=== PATIENT | female | born 1950 | race Caucasian/White ===

== ENCOUNTER 2017-09-13 12:27 | Inpatient (IN) | payer MEDICARE ==
--- NOTE | 2017-09-13 13:38 | ER Document Report ---
HPI - HPI Patient complains to provider of: Knee injury Onset: Other - 2 days ago Onset/Duration: Persistent Quality of pain: Achy Pain Level: 3 Context: Patient's daughter reports that patient fell 2 days ago and remained lying on the floor until the following day at 2 PM whenever she found her and called EMS. Patient states that she remained in a chair from Tuesday until today and came for evaluation of her continued bilateral knee pain. Patient does report a history of congenital hip problems in which she has had numerous hip replacements in the past. Patient denies any head injury or loss of consciousness. Patient denies any chest pain or difficulty breathing. Associated Symptoms: Other - Bilateral knee pain. denies: Fever, Headache Exacerbated by: Movement Relieved by: Denies Similar symptoms previously: No Recently seen / treated by doctor: No - ROS ROS below otherwise negative: Yes Systems Reviewed and Negative: Yes All other systems reviewed and negative - CONSTITUTIONAL Constitutional: DENIES: Fever, Chills - NEURO Neurology: DENIES: Headache, Weakness - GASTROINTESTINAL Gastrointestinal: DENIES: Nausea, Patient vomiting - MUSCULOSKELETAL Musculoskeletal: REPORTS: Extremity pain - R leg pain. DENIES: Back Pain, Neck Pain - DERM Skin Color: Ecchymosis Skin Problems: None Past Medical History - General Information source: Patient, Relative - Social History Smoking Status: Former Smoker Chew tobacco use (# tins/day): No Drug Abuse: None Occupation: None Lives with: Alone Family History: Reviewed & Not Pertinent Patient has suicidal ideation: No Patient has homicidal ideation: No Renal/ Medical History: Denies: Hx Peritoneal Dialysis Musculoskeltal Medical History: Reports Hx Arthritis Past Surgical History: Reports: Hx Orthopedic Surgery Vertical Provider Document - CONSTITUTIONAL Agree With Documented VS: Yes Exam Limitations: No Limitations General Appearance: WD/WN, No Apparent Distress - INFECTION CONTROL TRAVEL OUTSIDE OF THE [place] IN LAST 30 DAYS: No - HEENT HEENT: Atraumatic, Normocephalic - NECK Neck: Normal Inspection - RESPIRATORY Respiratory: Breath Sounds Normal, No Respiratory Distress - CARDIOVASCULAR Cardiovascular: Regular Rate, Regular Rhythm Pulses: Normal: Dorsalis pedis - GI/ABDOMEN Gastrointestinal: Abdomen Soft - BACK Back: Normal Inspection Notes: No spinal midline tenderness, step-off or deformity - MUSCULOSKELETAL/EXTREMETIES Musculoskeletal/Extremeties: MAEW, Tender - Patient with bilateral knee joint tenderness, Edema, Eccymosis - Right lower extremity anterior aspect of right lower extremity Notes: Leg length discrepancy, marked edema and ecchymosis to anterior aspect of right lower extremity involving the first and second thirds of the lower leg - NEURO Level of Consciousness: Awake, Alert, Appropriate Motor/Sensory: No Motor Deficit - DERM Integumentary: Warm, Dry, No Rash Course - Re-evaluation Re-evalutation: 09/13/17 15:15 Call placed perforator operator oil well for consultation with orthopedics, message left on Dr. Benavides's line. Patient advised that is recommended to have her fractures immobilized for stability. 09/13/17 16:09 Dr. Benavides is currently in a surgical case. Message left with circulating RN to relay that he has a consultation in the ER pending. Patient is only agreeable to have her left leg splinted at this time. Patient insistent that she will be going home because she lives alone. 09/13/17 16:54 Still awaiting consultation with orthopedic surgeon. Patient requesting that her case and plan of care be related to her daughter who was on the phone. Patient gave verbal consent to speak with her daughter about her case. Patient continues to decline any immobilization at this time. 09/13/17 17:[address] Benavides who advises putting knee immobilizers on bilateral lower extremities, obtaining a left femur x-ray as well as an AP view of the left knee. States he will be by later this evening to see patient. Recommends having hospitalist admit patient. Consulted with Dr. Deal who does agree to accept patient for admission as long as the orthopedic surgeon feels that he can manage patient here. - Vital Signs Vital signs: Temp Pulse Resp BP Pulse Ox 98.4 F 91 16 120/70 97 09/13/17 12:28 09/13/17 12:28 09/13/17 12:28 09/13/17 12:28 09/13/17 12:28 - Laboratory Result Diagrams: 09/13/17 18:18 09/13/17 18:18 - Diagnostic Test Radiology reviewed: Image reviewed, Reports reviewed Discharge - Discharge Clinical Impression: Bilateral tibial fractures Qualifiers: Encounter type: initial encounter Fracture type: closed Qualified Code(s): S82.201A - Unspecified fracture of shaft of right tibia, initial encounter for closed fracture Fracture of left proximal fibula Qualifiers: Encounter type: initial encounter Fracture type: closed Fracture morphology: unspecified fracture morphology Qualified Code(s): S82.832A - Other fracture of upper and lower end of left fibula, initial encounter for closed fracture Fall Qualifiers: Encounter type: initial encounter Qualified Code(s): W19.XXXA - Unspecified fall, initial encounter Condition: Stable Disposition: ADMITTED INPATIENT Admitting Provider: Hospitalist Unit Admitted: Medical Floor
--- NOTE | 2017-09-13 14:55 | RADIOLOGY REPORT (SQ) ---
EXAM DESCRIPTION: KNEE LEFT 2 VIEWS COMPLETED DATE/TIME: 09/13/2017 2:32 pm REASON FOR STUDY: fall COMPARISON: None. NUMBER OF VIEWS: Four views. TECHNIQUE: AP, lateral, and oblique radiographic images acquired of the left knee. LIMITATIONS: None. FINDINGS: MINERALIZATION: Osteopenia. BONES: Minimally displaced fracture proximal tibia. Fibular head fracture. JOINT: No effusion. SOFT TISSUES: No soft tissue swelling. No radio-opaque foreign body. OTHER: Limited visualization of an intramedullary femoral courtney with associated loosening that protrude s through the distal femur anteriorly. This is probably old based on radiographic appearance. IMPRESSION: Acute fractures of the proximal tibia and fibular head. See above discussion concerning intramedullary courtney. TECHNICAL DOCUMENTATION: JOB ID: [id number] [employer]- All Rights Reserved Reading location - IP/workstation name: [email or web address]
--- NOTE | 2017-09-13 15:00 | RADIOLOGY REPORT (SQ) ---
EXAM DESCRIPTION: KNEE RIGHT 4 VIEWS COMPLETED DATE/TIME: 09/13/2017 2:32 pm REASON FOR STUDY: fall COMPARISON: None. NUMBER OF VIEWS: Four views. TECHNIQUE: AP, lateral, and both oblique radiographic images acquired of the right knee. LIMITATIONS: None. FINDINGS: MINERALIZATION: Normal. BONES: Comminuted fracture the proximal tibia with fracture line extending into the tibial plateau. Fibula intact JOINT: No effusion. SOFT TISSUES: Soft tissue swelling medial aspect of the knee adjacent to the fracture. OTHER: No other significant finding. IMPRESSION: Acute comminuted fracture the proximal tibia with fracture line extending into the tibi al plateau. TECHNICAL DOCUMENTATION: JOB ID: [id number] [employer]- All Rights Reserved Reading location - IP/workstation name: [email or web address]
--- NOTE | 2017-09-13 15:01 | RADIOLOGY REPORT (SQ) ---
EXAM DESCRIPTION: TIBIA FIBULA RIGHT COMPLETED DATE/TIME: 09/13/2017 2:32 pm REASON FOR STUDY: fall COMPARISON: None. NUMBER OF VIEWS: Two views. TECHNIQUE: Two radiographic images acquired of the right tibia and fibula to include the knee and an kle in at least one projection. LIMITATIONS: None. FINDINGS: MINERALIZATION: Normal. BONES: Fracture the proximal tibia is previously described. No fractures of the mid and distal shaft s of the tibia and fibula. SOFT TISSUES: No obvious swelling or foreign body. OTHER: No other significant finding. IMPRESSION: Fracture of the proximal tibia as reported on the knee films. No fracture of the mid an d distal shafts of the tibia and fibula TECHNICAL DOCUMENTATION: JOB ID: [id number] [employer]- All Rights Reserved Reading location - IP/workstation name: [email or web address]
[2017-09-13] MEDS ORDERED: ONDANSETRON HCL INJ/PF 4 MG/2 ML SDV IV PRN (18:02)
[2017-09-13] MEDS ORDERED: IPRATROPIUM/ALBUTEROL 0.5-2.5 MG/3 ML AMPUL NEB PRN (18:02)
[2017-09-13 18:38] LABS: ABSOLUTE BASOPHILS # (AUTO) 0.1 10^3/uL (0.0-0.2); ABSOLUTE EOSINOPHILS # (AUTO) 0.1 10^3/uL (0.0-0.6); ABSOLUTE LYMPHOCYTES (AUTO) 1.2 10^3/uL (0.5-4.7); BASOPHILS % (AUTO) 0.6 % (0-2); EOSINOPHILS % (AUTO) 0.8 % (0-6); HEMATOCRIT 37.4 % (36.0-47.0); HEMOGLOBIN 12.5 g/dL (12.0-15.5); LYMPHOCYTES % (AUTO) 11.6 % (13-45); MEAN CORPUSCULAR HGB CONC 33.4 g/dL (32.0-36.0); MEAN CORPUSCULAR VOLUME 90 fl (80-97); MONOCYTES % (AUTO) 9.3 % (3-13); PLATELET COUNT 360 10^3/uL (150-450); RED BLOOD COUNT 4.17 10^6/uL (3.72-5.28); RED CELL DISTRIBUTION WIDTH 14.7 % (11.5-14.0); SEGMENTED NEUTROPHILS % (AUTO) 77.7 % (42-78); TOTAL CELLS COUNTED % (AUTO) 100 %; WHITE BLOOD COUNT 10.3 10^3/uL (4.0-10.5)
[2017-09-13 18:56] LABS: ALBUMIN 3.8 g/dL (3.5-5.0); ANION GAP 15 (5-19); BLOOD UREA NITROGEN 31 mg/dL (7-20); CARBON DIOXIDE 25 mmol/L (22-30); CHLORIDE 102 mmol/L (98-107); CREATINE KINASE 58 U/L (30-135); GLUCOSE 96 mg/dL (75-110); PHOSPHORUS 5.7 mg/dL (2.5-4.5); POTASSIUM 4.4 mmol/L (3.6-5.0); SODIUM 142.3 mmol/L (137-145)
--- NOTE | 2017-09-13 19:16 | PDOC H&P ---
History of Present Illness Admission Date/PCP: 09/13/17 17:29 Patient complains of: bilateral leg pain History of Present Illness: LOREN DIEHL is a 66 year old female with past history of congenital hip dysplasia, with hx of left hip replacement x3, and right hip replacement x1. Patient denies taking medicine on a regular basis for any condition other than regular strength Ibuprofen occassionally for lower extremity pain. States that she was walking in her rented home and tripped on protective plastic that was on the floor. Due to her congenital hip condition, she uses bilateral canes in her ambulation. Patient does not have a PCP in the area due to moving from [place] in the last 6 months. She moved here to be closer to her daughter who lives in the area. Orthopedics is currently seeing her and so far recommend bilateral knee immobilizers and no surgery. Patient will be admitted under observation status overnight, for further treatment of her pain, and evaluation by PT. Patient lives alone. Currently describes no significant pain, but if she moves her legs, describes severe pain. Past Medical History Musculoskeltal Medical History: Reports: Arthritis, Other - congenital hip dysplasia Past Surgical History Past Surgical History: left hip replacement x3, right hip replacement x1 Past Surgical History: Reports: Hip Replacement, Orthopedic Surgery - L HIP REPLACEMENT Social History Information Source: Patient Lives with: Alone Smoking Status: Former Smoker Cigarettes Packs Per Day: 0 - smoked for 10 years in her youth Frequency of Alcohol Use: Heavy Amount of Alcoholic Beverages Per Day: 3 glasses of wine per day Hx Recreational Drug Use: No - Advance Directive Resuscitation Status: Full Code Family History Family History: mother had DM, passed at age 89 father had stomach ulcers and passed at age 37. Parental Family History Reviewed: Yes Children Family History Reviewed: No Sibling(s) Family History Reviewed.: No Medication/Allergy Home Medications: No Home Medications 09/13/17 Allergies/Adverse Reactions: Penicillins Allergy (Verified 09/13/17 12:31) Review of Systems Constitutional: ABSENT: fatigue, fever(s), headache(s), weakness Eyes: ABSENT: visual disturbances Ears: ABSENT: hearing changes Nose, Mouth, and Throat: ABSENT: mouth pain, sore throat Cardiovascular: ABSENT: chest pain, edema Respiratory: ABSENT: cough, dyspnea Gastrointestinal: ABSENT: diarrhea, vomiting Genitourinary: ABSENT: dysuria, hematuria Musculoskeletal: PRESENT: other - tender to palpation below both knees bilaterally Integumentary: ABSENT: diaphoresis, lesions Neurological: ABSENT: focal weakness, lack of coordination, memory loss Psychiatric: ABSENT: anxiety, hallucinations Endocrine: ABSENT: flushing, heat intolerance Hematologic/Lymphatic: ABSENT: easy bruising, lymphadenopathy Physical Exam Vital Signs: Temp Pulse Resp BP Pulse Ox 98.0 F 103 H 16 124/73 98 09/13/17 18:31 09/13/17 18:31 09/13/17 18:31 09/13/17 18:31 09/13/17 18:31 General appearance: PRESENT: no acute distress, cooperative Head exam: PRESENT: atraumatic, normocephalic Eye exam: PRESENT: EOMI, PERRLA Ear exam: PRESENT: normal external ear exam. ABSENT: drainage Mouth exam: PRESENT: moist, neck supple Throat exam: ABSENT: tonsillar erythema, tonsillar exudate Neck exam: PRESENT: JVD. ABSENT: full ROM Respiratory exam: ABSENT: accessory muscle use, rales, rhonchi, wheezes Cardiovascular exam: PRESENT: RRR, +S1, +S2 Pulses: PRESENT: normal radial pulses, normal dorsalis pedis pul GI/Abdominal exam: PRESENT: normal bowel sounds, soft. ABSENT: rigid Extremities exam: PRESENT: tenderness - tenderness below knees bilaterally Musculoskeletal exam: PRESENT: tenderness. ABSENT: ambulatory Neurological exam: PRESENT: alert, oriented to person, oriented to place, oriented to time, oriented to situation Psychiatric exam: ABSENT: anxious, depressed, manic Focused psych exam: ABSENT: internal stimuli, paranoid Skin exam: PRESENT: normal color. ABSENT: mottled Results Laboratory Results: 09/13/17 18:18 09/13/17 18:18 WBC 10.3 RBC 4.17 Hgb 12.5 Hct 37.4 MCV 90 MCH 30.0 MCHC 33.4 RDW 14.7 H Plt Count 360 Seg Neutrophils % 77.7 Lymphocytes % 11.6 L Monocytes % 9.3 Eosinophils % 0.8 Basophils % 0.6 Absolute Neutrophils 8.0 Absolute Lymphocytes 1.2 Absolute Monocytes 1.0 Absolute Eosinophils 0.1 Absolute Basophils 0.1 Impressions: Knee X-Ray 09/13/17 13:36 IMPRESSION: Acute comminuted fracture the proximal tibia with fracture line extending into the tibial plateau. Tibia/Fibula X-Ray 09/13/17 13:36 IMPRESSION: Fracture of the proximal tibia as reported on the knee films. No fracture of the mid and distal shafts of the tibia and fibula Assessment & Plan - Diagnosis (1) Bilateral tibial fractures Qualifiers: Encounter type: initial encounter Fracture type: closed Qualified Code(s) : S82.201A - Unspecified fracture of shaft of right tibia, initial encounter for closed fracture; S82.202A - Unspecified fracture of shaft of left tibia, initial encounter for closed fracture; S82.202A - Unspecified fracture of shaft of left tibia, initial encounter for closed fracture Is this a current diagnosis for this admission?: Yes Plan: Orthopedics evaluated patient in ED, recommending bilateral knee immobilizers. will bring patient in for observation, pain control, and PT assessment. May need SNF/rehab at discharge, Discharge planning consulted. Start Calcium/Vitamin D (2) Fall Qualifiers: Encounter type: initial encounter Qualified Code(s): W19.XXXA - Unspecified fall, initial encounter Is this a current diagnosis for this admission?: Yes Plan: Walks with bilateral canes at home. PT to evaluate her mobility. She will likely not be able to stand with her bilateral knee immobilizers. (3) Inadequate pain control Is this a current diagnosis for this admission?: Yes Plan: prn Tylenol, prn Oxycodone and prn IV Dilaudid. (4) Congenital hip dysplasia Is this a current diagnosis for this admission?: Yes Plan: Chronic mobility dissorder. PT consulted.
--- NOTE | 2017-09-13 19:20 | RADIOLOGY REPORT (SQ) ---
EXAM DESCRIPTION: FEMUR LEFT COMPLETED DATE/TIME: 09/13/2017 7:06 pm REASON FOR STUDY: fall COMPARISON: None. NUMBER OF VIEWS: Two views. TECHNIQUE: Two radiographic images acquired of the left femur to include hip and knee in at least on e projection. LIMITATIONS: None. FINDINGS: MINERALIZATION: Normal. BONES: There is a left hip arthroplasty with a long medullary courtney that extends almost to the knee. O n the lateral view the courtney has extended anterior to the femur. There appear to be fractures of the p roximal tibia and fibula as suggested on the lateral view at the knee. . SOFT TISSUES: No obvious swelling or foreign body. OTHER: No other significant finding. IMPRESSION: 1. Fractures of the proximal tibia and fibula. 2. Old surgical changes as described. TECHNICAL DOCUMENTATION: JOB ID: [id number] [employer]- All Rights Reserved Reading location - IP/workstation name: [email or web address]
--- NOTE | 2017-09-13 19:20 | PDOC CONSULTATION ---
History of Present Illness Admission Date/PCP: 09/13/17 17:29 Patient complains of: b/l knee pain History of Present Illness: LOREN DIEHL is a 66 year old female who presents to emergency room with pain in her bilateral knees. She states on Tuesday she sustained a fall onto her knees and her own apartment and was discovered by her daughter the next morning with the inability to weight-bear or ambulate. She admits to being somewhat stubborn and felt like Advil and Tylenol would improve her discomfort which is the reason she initially did not go to the emergency room but since her pain did not improve she decided to come to the emergency room. Patient is a community ambulator but requires bilateral cane secondary to a long-standing history of congenital dysplasia in her hips which required multiple surgeries including 5 surgeries on the left and 2 surgeries on the right and she has a chronic limb length discrepancy. Past Medical History Cardiac Medical History: Reports: Hypertension Musculoskeltal Medical History: Reports: Arthritis, Other - congenital hip dysplasia Past Surgical History Past Surgical History: Reports: Hip Replacement, Orthopedic Surgery - L HIP REPLACEMENT Social History Lives with: Alone Smoking Status: Former Smoker Cigarettes Packs Per Day: 0 - smoked for 10 years in her youth Frequency of Alcohol Use: Heavy Hx Recreational Drug Use: No - Advance Directive Resuscitation Status: Full Code Family History Parental Family History Reviewed: No Children Family History Reviewed: No Sibling(s) Family History Reviewed.: No Medication/Allergy Home Medications: No Home Medications 09/13/17 Allergies/Adverse Reactions: Penicillins Allergy (Verified 09/13/17 12:31) Review of Systems Constitutional: ABSENT: chills, fever(s), headache(s), weight gain, weight loss Eyes: ABSENT: visual disturbances Ears: ABSENT: hearing changes Cardiovascular: ABSENT: chest pain, dyspnea on exertion, edema, orthropnea, palpitations Respiratory: ABSENT: cough, hemoptysis Gastrointestinal: ABSENT: abdominal pain, constipation, diarrhea, hematemesis, hematochezia, nausea, vomiting Genitourinary: ABSENT: dysuria, hematuria Musculoskeletal: PRESENT: as per HPI Integumentary: ABSENT: rash, wounds Neurological: ABSENT: abnormal gait, abnormal speech, confusion, dizziness, focal weakness, syncope Psychiatric: ABSENT: anxiety, depression, homidical ideation, suicidal ideation Endocrine: ABSENT: cold intolerance, heat intolerance, menstrual abnormalities, polydipsia, polyuria Hematologic/Lymphatic: ABSENT: easy bleeding, easy bruising, lymphadenopathy Physical Exam Vital Signs: Temp Pulse Resp BP Pulse Ox 98.0 F 103 H 16 124/73 98 09/13/17 18:31 09/13/17 18:31 09/13/17 18:31 09/13/17 18:31 09/13/17 18:31 General appearance: PRESENT: no acute distress, well-developed, well-nourished Head exam: PRESENT: atraumatic, normocephalic Eye exam: PRESENT: conjunctiva pink, EOMI, PERRLA. ABSENT: scleral icterus Ear exam: PRESENT: normal external ear exam Mouth exam: PRESENT: moist, tongue midline Neck exam: PRESENT: full ROM. ABSENT: carotid bruit, JVD, lymphadenopathy, thyromegaly Cardiovascular exam: PRESENT: RRR. ABSENT: diastolic murmur, rubs, systolic murmur Pulses: PRESENT: normal dorsalis pedis pul, +2 pedal pulses bilateral Vascular exam: PRESENT: normal capillary refill GI/Abdominal exam: PRESENT: normal bowel sounds, soft. ABSENT: distended, guarding, mass, organolmegaly, rebound, tenderness Rectal exam: PRESENT: deferred Musculoskeletal exam: PRESENT: other - Right lower extremity: Mild ecchymosis along the proximal tibia with tenderness to palpation. Limited range of motion secondary to pain. No calf tenderness. Intact plantar flexion/dorsiflexion no sensory deficits. Postsurgical changes noted along the hip region. Left lower extremity: Tenderness palpation of the proximal tibia/fibula with mild swelling and ecchymosis limited range of motion secondary to pain. No pain along the distal femur. Postsurgical changes noted along the hip patient has greater than 6 cm limb length inequality. No calf tenderness negative Homans. Neurological exam: PRESENT: alert, awake, oriented to person, oriented to place , oriented to time, oriented to situation, CN II-XII grossly intact. ABSENT: motor sensory deficit Psychiatric exam: PRESENT: appropriate affect, normal mood. ABSENT: homicidal ideation, suicidal ideation Skin exam: PRESENT: dry, intact, warm. ABSENT: cyanosis, rash Results Laboratory Results: 09/13/17 18:18 09/13/17 18:18 09/13/17 09/13/17 18:18 18:18 WBC 10.3 RBC 4.17 Hgb 12.5 Hct 37.4 MCV 90 MCH 30.0 MCHC 33.4 RDW 14.7 H Plt Count 360 Seg Neutrophils % 77.7 Lymphocytes % 11.6 L Monocytes % 9.3 Eosinophils % 0.8 Basophils % 0.6 Absolute Neutrophils 8.0 Absolute Lymphocytes 1.2 Absolute Monocytes 1.0 Absolute Eosinophils 0.1 Absolute Basophils 0.1 Sodium 142.3 Potassium 4.4 Chloride 102 Carbon Dioxide 25 Anion Gap 15 BUN 31 H Creatinine 2.23 H Est GFR ( Amer) 27 L Est GFR (Non-Af Amer) 22 L Glucose 96 Calcium 9.0 Phosphorus 5.7 H Magnesium 1.9 Albumin 3.8 09/13/17 18:18 Creatine Kinase 58 Impressions: Knee X-Ray 09/13/17 13:36 IMPRESSION: Acute comminuted fracture the proximal tibia with fracture line extending into the tibial plateau. Tibia/Fibula X-Ray 09/13/17 13:36 IMPRESSION: Fracture of the proximal tibia as reported on the knee films. No fracture of the mid and distal shafts of the tibia and fibula Status: Image reviewed by me - I have reviewed patient's radiographs which demonstrate nondisplaced proximal tibia fracture with associated fibula fracture. Radiographs of the left knee demonstrate likely proximal tibia fracture with associated fibula fracture along with post surgical changes along the distal femur likely chronic in nature however limited evaluation. Assessment & Plan - Diagnosis (1) Bilateral tibial fractures Qualifiers: Encounter type: initial encounter Fracture type: closed Qualified Code(s) : S82.201A - Unspecified fracture of shaft of right tibia, initial encounter for closed fracture; S82.202A - Unspecified fracture of shaft of left tibia, initial encounter for closed fracture; S82.202A - Unspecified fracture of shaft of left tibia, initial encounter for closed fracture Is this a current diagnosis for this admission?: Yes Plan: Currently patient's radiographs demonstrate acceptable alignment for conservative treatment of patient's bilateral proximal tibia fractures. Given this alignment we will treat the patient conservatively but she will require rehabilitation and maintaining nonweightbearing for 6 weeks. I discussed the case with the patient's daughter feels as though she may require shelter facility. Given the patient's age, fractures and difficulty with ambulation secondary to her congenital dysplasia I do feel shelter facility placement may be required or 24 7 home nursing. Today patient was placed in bilateral knee immobilizers. We will obtain repeat radiographs of the left femur and left knee to confirm nonoperative treatment appropriate. Will follow-up the patient once radiographs are complete patient will follow up with me on an outpatient basis.
--- NOTE | 2017-09-13 19:22 | RADIOLOGY REPORT (SQ) ---
EXAM DESCRIPTION: KNEE LEFT 2 VIEWS COMPLETED DATE/TIME: 09/13/2017 7:06 pm REASON FOR STUDY: fall COMPARISON: None. NUMBER OF VIEWS: Two views. TECHNIQUE: AP and lateral radiographic images acquired of the left knee. LIMITATIONS: None. FINDINGS: MINERALIZATION: Osteopenia. BONES: Fractures of the proximal tibia and fibula. There is a fracture component of the tibia that e xtends to the lateral tibial plateau. JOINT: No effusion. SOFT TISSUES: No soft tissue swelling. No radio-opaque foreign body. OTHER: No other significant finding. IMPRESSION: Tibial and fibular fractures. TECHNICAL DOCUMENTATION: JOB ID: [id number] [employer]- All Rights Reserved Reading location - IP/workstation name: [email or web address]
--- NOTE | 2017-09-13 19:31 | RADIOLOGY REPORT (SQ) ---
EXAM DESCRIPTION: CHEST SINGLE VIEW COMPLETED DATE/TIME: 09/13/2017 7:06 pm REASON FOR STUDY: fall COMPARISON: None. EXAM PARAMETERS: NUMBER OF VIEWS: One view. TECHNIQUE: Single frontal radiographic view of the chest acquired. RADIATION DOSE: NA LIMITATIONS: None. FINDINGS: LUNGS AND PLEURA: No opacities, masses or pneumothorax. No pleural effusion. MEDIASTINUM AND HILAR STRUCTURES: No masses. Contour normal. HEART AND VASCULAR STRUCTURES: Heart normal in size. Normal vasculature. BONES: No acute findings. HARDWARE: None in the chest. OTHER: No other significant finding. IMPRESSION: NO ACUTE RADIOGRAPHIC FINDING IN THE CHEST. TECHNICAL DOCUMENTATION: JOB ID: [id number] [employer]- All Rights Reserved Reading location - IP/workstation name: [email or web address]
[2017-09-13] MEDS: OXYCODONE-ACETAMINOPHEN 5-325 MG TABLET PO PRN (20:06)
--- NOTE | 2017-09-13 22:47 | EKG REPORT ---
SEVERITY:- NORMAL ECG - SINUS RHYTHM : Confirmed by: Marlon Fonseca 13-Sep-2017 22:46:17
[2017-09-14] MEDS ORDERED: HYDRALAZINE HCL INJ/PF 20 MG/1 ML SDV IV PRN (01:31)
[2017-09-14] MEDS: OXYCODONE-ACETAMINOPHEN 5-325 MG TABLET PO PRN ×2 (06:31→22:00)
[2017-09-14 08:00] LABS: ABSOLUTE BASOPHILS # (AUTO) 0.1 10^3/uL (0.0-0.2); ABSOLUTE EOSINOPHILS # (AUTO) 0.3 10^3/uL (0.0-0.6); ABSOLUTE LYMPHOCYTES (AUTO) 1.2 10^3/uL (0.5-4.7); ABSOLUTE MONOCYTES (AUTO) 0.9 10^3/uL (0.1-1.4); ABSOLUTE NEUT (AUTO) 7.1 10^3/uL (1.7-8.2); BASOPHILS % (AUTO) 0.8 % (0-2); EOSINOPHILS % (AUTO) 3.2 % (0-6); HEMATOCRIT 34.7 % (36.0-47.0); HEMOGLOBIN 11.6 g/dL (12.0-15.5); LYMPHOCYTES % (AUTO) 12.2 % (13-45); MEAN CORPUSCULAR HGB CONC 33.3 g/dL (32.0-36.0); MEAN CORPUSCULAR VOLUME 90 fl (80-97); MONOCYTES % (AUTO) 9.6 % (3-13); PLATELET COUNT 359 10^3/uL (150-450); RED BLOOD COUNT 3.85 10^6/uL (3.72-5.28); RED CELL DISTRIBUTION WIDTH 14.7 % (11.5-14.0); SEGMENTED NEUTROPHILS % (AUTO) 74.2 % (42-78); TOTAL CELLS COUNTED % (AUTO) 100 %; WHITE BLOOD COUNT 9.5 10^3/uL (4.0-10.5)
[2017-09-14 08:16] LABS: ANION GAP 17 (5-19); BLOOD UREA NITROGEN 38 mg/dL (7-20); CARBON DIOXIDE 24 mmol/L (22-30); CHLORIDE 101 mmol/L (98-107); GLUCOSE 93 mg/dL (75-110); POTASSIUM 4.3 mmol/L (3.6-5.0); SODIUM 141.5 mmol/L (137-145)
[2017-09-14] MEDS: DOCUSATE SODIUM 100 MG CAPSULE PO SCH (11:25)
[2017-09-14] MEDS: CALCIUM CARBONATE 250 MG/VITAMIN D3 125 UNIT TABLET PO SCH ×2 (11:25→21:05)
[2017-09-14] MEDS: ACETAMINOPHEN 325 MG TABLET PO PRN (13:14)
--- NOTE | 2017-09-14 21:18 | PDOC PROGRESS REPORT ---
Subjective Progress Note for:: 09/14/17 Subjective:: Complains of pain bilateral lower extremities. Does not like strong pain medicine, so only using Tylenol during the day. She however plans to use Percocet at night so she can sleep. Denies fever or chills, no chest pain or shortness of breath or palpitations. Reason For Visit: BILATERAL FRACTURE IN LOWER EXTREMITIES Physical Exam Vital Signs: Temp Pulse Resp BP Pulse Ox 98.2 F 90 12 124/63 99 09/14/17 16:37 09/14/17 16:37 09/14/17 16:37 09/14/17 16:37 09/14/17 16:37 Intake & Output 09/13/17 09/14/17 09/15/17 06:59 06:59 06:59 Intake Total 1468 Output Total 400 400 Balance -400 1068 Weight 65 kg GEN: NAD, well-developed, well-nourished CV: RRR, NL S1S2 LUNGS: CTA bilaterally ABDOMEN Soft, NT, +BS EXTERMITIES: No e/c/c Musculoskeletal:Right lower extremity with mild ecchymosis along the proximal tibia with tenderness to palpation. Left lower extremity with tenderness palpation of the proximal tibia/fibula with mild swelling and ecchymosis limited range of motion secondary to pain. NEURO: Alert, oriented 3, no acute weakness Results Laboratory Results: 09/14/17 07:00 09/14/17 07:00 09/14/17 09/14/17 07:00 07:00 WBC 9.5 RBC 3.85 Hgb 11.6 L Hct 34.7 L MCV 90 MCH 30.0 MCHC 33.3 RDW 14.7 H Plt Count 359 Seg Neutrophils % 74.2 Lymphocytes % 12.2 L Monocytes % 9.6 Eosinophils % 3.2 Basophils % 0.8 Absolute Neutrophils 7.1 Absolute Lymphocytes 1.2 Absolute Monocytes 0.9 Absolute Eosinophils 0.3 Absolute Basophils 0.1 Sodium 141.5 Potassium 4.3 Chloride 101 Carbon Dioxide 24 Anion Gap 17 BUN 38 H Creatinine 2.56 H Est GFR ( Amer) 23 L Est GFR (Non-Af Amer) 19 L Glucose 93 Calcium 9.0 09/13/17 18:18 Creatine Kinase 58 Impressions: Tibia/Fibula X-Ray 09/13/17 13:36 IMPRESSION: Fracture of the proximal tibia as reported on the knee films. No fracture of the mid and distal shafts of the tibia and fibula Chest X-Ray 09/13/17 17:08 IMPRESSION: NO ACUTE RADIOGRAPHIC FINDING IN THE CHEST. Femur X-Ray 09/13/17 17:08 IMPRESSION: 1. Fractures of the proximal tibia and fibula. 2. Old surgical changes as described. Knee X-Ray 09/13/17 17:08 IMPRESSION: Tibial and fibular fractures. Assessment & Plan - Plan Summary Plan Summary: (1) Bilateral tibial fractures Qualifiers: Encounter type: Subsequent encounter Fracture type: closed Qualified Code (s): S82.201A - Unspecified fracture of shaft of right tibia, initial encounter for closed fracture; S82.202A - Unspecified fracture of shaft of left tibia, initial encounter for closed fracture; S82.202A - Unspecified fracture of shaft of left tibia, initial encounter for closed fracture Is this a current diagnosis for this admission?: Yes Plan: Orthopedics evaluated patient, recommended bilateral knee immobilizers. Continue pain control, PT assessment. Plan for SNF/rehab at discharge. Continue calcium/Vitamin D (2) Fall Qualifiers: Encounter type: initial encounter Qualified Code(s): W19.XXXA - Unspecified fall, initial encounter Is this a current diagnosis for this admission?: Yes Plan: Walks with bilateral canes at home. PT reevaluation. She will likely not be able to stand with her bilateral knee immobilizers. (3) pain Is this a current diagnosis for this admission?: Yes Plan: prn Tylenol, prn Oxycodone and prn IV Dilaudid. (4) Congenital hip dysplasia Is this a current diagnosis for this admission?: Yes Plan: Chronic mobility dissorder. PT. (5) suspected CKD stage IV Is this a current diagnosis for this admission?: Yes Plan: Avoid nephrotoxic, obtain old records to compare labs. Patient used to live in [place]. Follow-up Chem-7 in a.m.
[2017-09-15 06:40] LABS: ABSOLUTE BASOPHILS # (AUTO) 0.1 10^3/uL (0.0-0.2); ABSOLUTE EOSINOPHILS # (AUTO) 0.4 10^3/uL (0.0-0.6); ABSOLUTE LYMPHOCYTES (AUTO) 1.3 10^3/uL (0.5-4.7); ABSOLUTE MONOCYTES (AUTO) 0.7 10^3/uL (0.1-1.4); ABSOLUTE NEUT (AUTO) 4.6 10^3/uL (1.7-8.2); BASOPHILS % (AUTO) 0.9 % (0-2); EOSINOPHILS % (AUTO) 5.2 % (0-6); HEMATOCRIT 32.4 % (36.0-47.0); HEMOGLOBIN 10.9 g/dL (12.0-15.5); LYMPHOCYTES % (AUTO) 18.1 % (13-45); MEAN CORPUSCULAR HEMOGLOBIN 30.2 pg (27.0-33.4); MEAN CORPUSCULAR HGB CONC 33.5 g/dL (32.0-36.0); MEAN CORPUSCULAR VOLUME 90 fl (80-97); MONOCYTES % (AUTO) 10.3 % (3-13); PLATELET COUNT 326 10^3/uL (150-450); RED CELL DISTRIBUTION WIDTH 14.4 % (11.5-14.0); SEGMENTED NEUTROPHILS % (AUTO) 65.5 % (42-78); TOTAL CELLS COUNTED % (AUTO) 100 %; WHITE BLOOD COUNT 7.1 10^3/uL (4.0-10.5)
[2017-09-15 07:06] LABS: ANION GAP 15 (5-19); BLOOD UREA NITROGEN 41 mg/dL (7-20); CALCIUM 9.5 mg/dL (8.4-10.2); CARBON DIOXIDE 25 mmol/L (22-30); CHLORIDE 102 mmol/L (98-107); GLUCOSE 93 mg/dL (75-110); SODIUM 141.6 mmol/L (137-145)
[2017-09-15] MEDS: DOCUSATE SODIUM 100 MG CAPSULE PO SCH ×2 (09:15→09:20)
[2017-09-15] MEDS: CALCIUM CARBONATE 250 MG/VITAMIN D3 125 UNIT TABLET PO SCH ×2 (09:30→19:15)
[2017-09-15] MEDS: HYDROMORPHONE HCL INJ/PF 2 MG/ML AMPULE IV PRN ×2 (09:30→21:06)
--- NOTE | 2017-09-15 15:49 | Physician Advisory Note ---
Physician Advisor ProgressNote .: Pursuant to the plan for [facility], I have reviewed the medical record for this patient. Physician Advisor Statement: Nice documentation of CKD Stage IV. Be sure to document any clinical issue she has (or develops) that requires ongoing hospital care/monitoring besides "just" needing fdc care & PT. Thanks! CK
[2017-09-15] MEDS: OXYCODONE-ACETAMINOPHEN 5-325 MG TABLET PO PRN (19:15)
--- NOTE | 2017-09-15 20:38 | PDOC PROGRESS REPORT ---
Subjective Progress Note for:: 09/15/17 Subjective:: Complains of pain bilateral lower extremities, worse on the left. Does not like strong pain medicine, but Tylenol not helping much. She will try Percocet. Denies fever or chills, no chest pain or shortness of breath or palpitations. Follow patient's abnormal kidney function, she is stating that she does not recall being told she has kidney problems. In light of this, will try IV fluid to see if kidney function improves. Requesting records from her previous providers to compare labs. Reason For Visit: BILATERAL FRACTURE IN LOWER EXTREMITIES Physical Exam Vital Signs: Temp Pulse Resp BP Pulse Ox 98.3 F 91 18 105/54 L 100 09/15/17 16:30 09/15/17 16:30 09/15/17 16:30 09/15/17 16:30 09/15/17 16:30 Intake & Output 09/14/17 09/15/17 09/16/17 06:59 06:59 06:59 Intake Total 1968 566 Output Total 400 600 600 Balance -400 1368 -34 Weight 65 kg GEN: NAD, well-developed, well-nourished CV: RRR, NL S1S2 LUNGS: CTA bilaterally ABDOMEN Soft, NT, +BS EXTERMITIES: No e/c/c Musculoskeletal: Right lower extremity with mild ecchymosis along the proximal tibia with tenderness to palpation. Left lower extremity with tenderness palpation of the proximal tibia/fibula with mild swelling and ecchymosis and limited range of motion secondary to pain. NEURO: Alert, oriented 3, no acute weakness Results Laboratory Results: 09/15/17 05:33 09/15/17 05:33 09/15/17 09/15/17 05:33 05:33 WBC 7.1 RBC 3.60 L Hgb 10.9 L Hct 32.4 L MCV 90 MCH 30.2 MCHC 33.5 RDW 14.4 H Plt Count 326 Seg Neutrophils % 65.5 Lymphocytes % 18.1 Monocytes % 10.3 Eosinophils % 5.2 Basophils % 0.9 Absolute Neutrophils 4.6 Absolute Lymphocytes 1.3 Absolute Monocytes 0.7 Absolute Eosinophils 0.4 Absolute Basophils 0.1 Sodium 141.6 Potassium 4.0 Chloride 102 Carbon Dioxide 25 Anion Gap 15 BUN 41 H Creatinine 2.42 H Est GFR ( Amer) 24 L Est GFR (Non-Af Amer) 20 L Glucose 93 Calcium 9.5 09/13/17 18:18 Creatine Kinase 58 Impressions: Tibia/Fibula X-Ray 09/13/17 13:36 IMPRESSION: Fracture of the proximal tibia as reported on the knee films. No fracture of the mid and distal shafts of the tibia and fibula Chest X-Ray 09/13/17 17:08 IMPRESSION: NO ACUTE RADIOGRAPHIC FINDING IN THE CHEST. Femur X-Ray 09/13/17 17:08 IMPRESSION: 1. Fractures of the proximal tibia and fibula. 2. Old surgical changes as described. Knee X-Ray 09/13/17 17:08 IMPRESSION: Tibial and fibular fractures. Assessment & Plan - Plan Summary Plan Summary: (1) Bilateral tibial fractures Qualifiers: Encounter type: Subsequent encounter Fracture type: closed Qualified Code (s): S82.201A - Unspecified fracture of shaft of right tibia, initial encounter for closed fracture; S82.202A - Unspecified fracture of shaft of left tibia, initial encounter for closed fracture; S82.202A - Unspecified fracture of shaft of left tibia, initial encounter for closed fracture Is this a current diagnosis for this admission?: Yes Plan: Orthopedics evaluated patient, recommended bilateral knee immobilizers. Continue pain control, PT assessment. Plan for SNF/rehab at discharge. Continue calcium/Vitamin D (2) Fall Qualifiers: Encounter type: initial encounter Qualified Code(s): W19.XXXA - Unspecified fall, initial encounter Is this a current diagnosis for this admission?: Yes Plan: Walks with bilateral canes at home. PT reevaluation. She will likely not be able to stand with her bilateral knee immobilizers. (3) pain Is this a current diagnosis for this admission?: Yes Plan: prn Tylenol, prn Oxycodone and prn IV Dilaudid. (4) Congenital hip dysplasia Is this a current diagnosis for this admission?: Yes Plan: Chronic mobility dissorder. PT. (5) Possible Acute Kidney Injury (6) Possible CKD stage IV Is this a current diagnosis for this admission?: Yes Plan: Patient states she does not recall having kidney problems We will treat with trial of IV fluid Will change to inpatient status while kidneys issues issues are being evaluated. Avoid nephrotoxics, requesting old records from previous physicians to compare labs. Patient used to live in [place]. Check renal ultrasound, follow-up Chem-7 in a.m.
[2017-09-15] MEDS ORDERED: NORMAL SALINE 1000 ML 1,000 ML IV PRN (20:48)
--- NOTE | 2017-09-16 01:45 | RADIOLOGY REPORT (SQ) ---
EXAM DESCRIPTION: US RETROPERITONEUM LIMITED COMPLETED DATE/TME: 09/16/2017 00:00 CLINICAL HISTORY: 66 years, Female, VICTORINO, possible CKD COMPARISON: None. LIMITATIONS: None. FINDINGS: 9 cm bilateral kidneys and urinary bladder appear unremarkable. Bilateral ureteral jets are not demonstrated at this time, nonspecific finding. IMPRESSION: Normal renal sonogram.
[2017-09-16 03:14] LABS: URINE CREATININE 91.3 mg/dL (15-278); URINE PROTEIN 18.3 mg/dL (<12)
[2017-09-16 03:18] LABS: URINE SODIUM < 5 mmol/L (30-90)
[2017-09-16 06:47] LABS: ABSOLUTE BASOPHILS # (AUTO) 0.1 10^3/uL (0.0-0.2); ABSOLUTE EOSINOPHILS # (AUTO) 0.4 10^3/uL (0.0-0.6); ABSOLUTE LYMPHOCYTES (AUTO) 1.3 10^3/uL (0.5-4.7); ABSOLUTE MONOCYTES (AUTO) 0.7 10^3/uL (0.1-1.4); ABSOLUTE NEUT (AUTO) 3.6 10^3/uL (1.7-8.2); BASOPHILS % (AUTO) 1.3 % (0-2); HEMATOCRIT 29.1 % (36.0-47.0); HEMOGLOBIN 9.8 g/dL (12.0-15.5); LYMPHOCYTES % (AUTO) 21.6 % (13-45); MEAN CORPUSCULAR HEMOGLOBIN 30.1 pg (27.0-33.4); MEAN CORPUSCULAR HGB CONC 33.6 g/dL (32.0-36.0); MEAN CORPUSCULAR VOLUME 89 fl (80-97); MONOCYTES % (AUTO) 11.2 % (3-13); PLATELET COUNT 325 10^3/uL (150-450); RED BLOOD COUNT 3.25 10^6/uL (3.72-5.28); RED CELL DISTRIBUTION WIDTH 14.4 % (11.5-14.0); SEGMENTED NEUTROPHILS % (AUTO) 59.9 % (42-78); TOTAL CELLS COUNTED % (AUTO) 100 %; WHITE BLOOD COUNT 5.9 10^3/uL (4.0-10.5)
[2017-09-16 07:08] LABS: ANION GAP 10 (5-19); BLOOD UREA NITROGEN 43 mg/dL (7-20); CALCIUM 9.4 mg/dL (8.4-10.2); CARBON DIOXIDE 27 mmol/L (22-30); CHLORIDE 103 mmol/L (98-107); GLUCOSE 90 mg/dL (75-110); POTASSIUM 4.2 mmol/L (3.6-5.0)
[2017-09-16] MEDS: HYDROMORPHONE HCL INJ/PF 2 MG/ML AMPULE IV PRN (08:29)
[2017-09-16] MEDS: CALCIUM CARBONATE 250 MG/VITAMIN D3 125 UNIT TABLET PO SCH ×2 (09:52→17:18)
[2017-09-16] MEDS ORDERED: DOCUSATE SODIUM 100 MG CAPSULE PO ONE (10:30)
[2017-09-16] MEDS: ACETAMINOPHEN 325 MG TABLET PO PRN (14:28)
--- NOTE | 2017-09-16 16:02 | PDOC PROGRESS REPORT ---
Subjective Progress Note for:: 09/16/17 Subjective:: Patient lying in bed comfortably. Pain controlled. Feels as though physical therapy went better yesterday. Reason For Visit: POSSIBLE VICTORINO, BILATERAL TIBIAL FRACTURES Physical Exam Vital Signs: Temp Pulse Resp BP Pulse Ox 98.7 F 85 18 110/62 98 09/16/17 11:19 09/16/17 11:19 09/16/17 11:19 09/16/17 11:19 09/16/17 11:19 Intake & Output 09/15/17 09/16/17 09/17/17 06:59 06:59 06:59 Intake Total 500 Output Total 300 Balance 200 Musculoskeletal exam: PRESENT: other - Bilateral lower extremities: Swelling and ecchymosis centered along the proximal tibia. No significant change compared to previous examination. Significant limb shortening of the left lower extremity. Calf soft and compressible. No evidence of skin breakdown from the knee immobilizers. Intact plantar flexion/dorsiflexion. Results Laboratory Results: 09/16/17 05:14 09/16/17 05:14 09/16/17 09/16/17 05:14 05:14 WBC 5.9 RBC 3.25 L Hgb 9.8 L Hct 29.1 L MCV 89 MCH 30.1 MCHC 33.6 RDW 14.4 H Plt Count 325 Seg Neutrophils % 59.9 Lymphocytes % 21.6 Monocytes % 11.2 Eosinophils % 6.0 Basophils % 1.3 Absolute Neutrophils 3.6 Absolute Lymphocytes 1.3 Absolute Monocytes 0.7 Absolute Eosinophils 0.4 Absolute Basophils 0.1 Sodium 140.0 Potassium 4.2 Chloride 103 Carbon Dioxide 27 Anion Gap 10 BUN 43 H Creatinine 1.65 H Est GFR ( Amer) 38 L Est GFR (Non-Af Amer) 31 L Glucose 90 Calcium 9.4 Impressions: Tibia/Fibula X-Ray 09/13/17 13:36 IMPRESSION: Fracture of the proximal tibia as reported on the knee films. No fracture of the mid and distal shafts of the tibia and fibula Chest X-Ray 09/13/17 17:08 IMPRESSION: NO ACUTE RADIOGRAPHIC FINDING IN THE CHEST. Femur X-Ray 09/13/17 17:08 IMPRESSION: 1. Fractures of the proximal tibia and fibula. 2. Old surgical changes as described. Knee X-Ray 09/13/17 17:08 IMPRESSION: Tibial and fibular fractures. Renal Ultrasound 09/16/17 00:00 IMPRESSION: Normal renal sonogram. Assessment & Plan - Diagnosis (1) Bilateral tibial fractures Qualifiers: Encounter type: initial encounter Fracture type: closed Qualified Code(s) : S82.201A - Unspecified fracture of shaft of right tibia, initial encounter for closed fracture; S82.202A - Unspecified fracture of shaft of left tibia, initial encounter for closed fracture; S82.202A - Unspecified fracture of shaft of left tibia, initial encounter for closed fracture Is this a current diagnosis for this admission?: Yes Plan: Currently patient's radiographs demonstrate acceptable alignment for conservative treatment of patient's bilateral proximal tibia fractures. Given this alignment we will treat the patient conservatively but she will require rehabilitation and maintaining nonweightbearing for 6 weeks. I discussed the case with the patient's daughter feels as though she may require long term facility. Given the patient's age, fractures and difficulty with ambulation secondary to her congenital dysplasia I do feel long term facility placement may be required or 7 home nursing. Today patient was placed in bilateral knee immobilizers. Patient will have repeat radiographs at follow-up. She will maintain nonweightbearing for at least 6 weeks. She may remove the knee immobilizers randomly throughout the day to avoid skin breakdown.
--- NOTE | 2017-09-16 18:15 | PDOC PROGRESS REPORT ---
Subjective Progress Note for:: 09/16/17 Subjective:: Patient is seen resting in bed. She denies any chest pain, shortness of breath or dyspnea. She denies any nausea, abdominal pain or constipation. She has moderate discomfort in both knees. She states is presently at a comfortable level with pain medication. She becomes slightly tearful when she discusses going to rehab for the next 6 weeks. She denies any other complaints. Remaining review of systems is negative. Reason For Visit: POSSIBLE VICTORINO, BILATERAL TIBIAL FRACTURES Physical Exam Vital Signs: Temp Pulse Resp BP Pulse Ox 98.6 F 90 16 101/56 L 99 09/16/17 15:28 09/16/17 15:28 09/16/17 15:28 09/16/17 15:28 09/16/17 15:28 Intake & Output 09/15/17 09/16/17 09/17/17 06:59 06:59 06:59 Intake Total 500 806 Output Total 300 700 Balance 200 106 General appearance: PRESENT: no acute distress, thin, well-developed, well- nourished Head exam: PRESENT: atraumatic, normocephalic Eye exam: PRESENT: conjunctiva pink, EOMI, PERRLA. ABSENT: scleral icterus Ear exam: PRESENT: normal external ear exam Mouth exam: PRESENT: moist, tongue midline Neck exam: ABSENT: carotid bruit, JVD, lymphadenopathy, thyromegaly Respiratory exam: PRESENT: clear to auscultation almaz. ABSENT: rales, rhonchi, wheezes Cardiovascular exam: PRESENT: RRR. ABSENT: diastolic murmur, rubs, systolic murmur Pulses: PRESENT: normal dorsalis pedis pul Vascular exam: PRESENT: normal capillary refill GI/Abdominal exam: PRESENT: normal bowel sounds, soft. ABSENT: distended, guarding, mass, organolmegaly, rebound, tenderness Rectal exam: PRESENT: deferred Extremities exam: PRESENT: full ROM. ABSENT: calf tenderness, clubbing, pedal edema Musculoskeletal exam: PRESENT: tenderness - Bilateral anterior knees Neurological exam: PRESENT: alert, awake, oriented to person, oriented to place , oriented to time, oriented to situation, CN II-XII grossly intact. ABSENT: motor sensory deficit Psychiatric exam: PRESENT: appropriate affect, normal mood. ABSENT: homicidal ideation, suicidal ideation Skin exam: PRESENT: dry, intact, warm. ABSENT: cyanosis, rash Results Laboratory Results: 09/16/17 05:14 09/16/17 05:14 09/16/17 09/16/17 05:14 05:14 WBC 5.9 RBC 3.25 L Hgb 9.8 L Hct 29.1 L MCV 89 MCH 30.1 MCHC 33.6 RDW 14.4 H Plt Count 325 Seg Neutrophils % 59.9 Lymphocytes % 21.6 Monocytes % 11.2 Eosinophils % 6.0 Basophils % 1.3 Absolute Neutrophils 3.6 Absolute Lymphocytes 1.3 Absolute Monocytes 0.7 Absolute Eosinophils 0.4 Absolute Basophils 0.1 Sodium 140.0 Potassium 4.2 Chloride 103 Carbon Dioxide 27 Anion Gap 10 BUN 43 H Creatinine 1.65 H Est GFR ( Amer) 38 L Est GFR (Non-Af Amer) 31 L Glucose 90 Calcium 9.4 Impressions: Tibia/Fibula X-Ray 09/13/17 13:36 IMPRESSION: Fracture of the proximal tibia as reported on the knee films. No fracture of the mid and distal shafts of the tibia and fibula Chest X-Ray 09/13/17 17:08 IMPRESSION: NO ACUTE RADIOGRAPHIC FINDING IN THE CHEST. Femur X-Ray 09/13/17 17:08 IMPRESSION: 1. Fractures of the proximal tibia and fibula. 2. Old surgical changes as described. Knee X-Ray 09/13/17 17:08 IMPRESSION: Tibial and fibular fractures. Renal Ultrasound 09/16/17 00:00 IMPRESSION: Normal renal sonogram. Assessment & Plan - Diagnosis (1) Bilateral tibial fractures Qualifiers: Encounter type: initial encounter Fracture type: closed Qualified Code(s) : S82.201A - Unspecified fracture of shaft of right tibia, initial encounter for closed fracture; S82.202A - Unspecified fracture of shaft of left tibia, initial encounter for closed fracture; S82.202A - Unspecified fracture of shaft of left tibia, initial encounter for closed fracture Is this a current diagnosis for this admission?: Yes Plan: Patient will be non-ambulatory for 6 weeks. As needed analgesics is providing relief for her pain. She will need short-term rehab. Case management has sent referrals. Orthopedic surgery is following patient. Dr. Benavides has seen the patient in consult. (2) Congenital hip dysplasia Is this a current diagnosis for this admission?: Yes Plan: She walks with 2 canes. States she takes Tylenol at home for pain. She has avoided narcotic analgesics. (3) Fall Qualifiers: Encounter type: initial encounter Qualified Code(s): W19.XXXA - Unspecified fall, initial encounter Is this a current diagnosis for this admission?: Yes Plan: As above. She will need 6 weeks of inpatient rehab. (4) Fracture of left proximal fibula Qualifiers: Encounter type: initial encounter Fracture type: closed Fracture morphology: unspecified fracture morphology Qualified Code(s): S82.832A - Other fracture of upper and lower end of left fibula, initial encounter for closed fracture Is this a current diagnosis for this admission?: Yes - Time Time Spent with patient: 25-34 minutes Total Critical Time (Minutes): 15 Medications reviewed and adjusted accordingly: Yes Anticipated discharge: Acute Rehab Within: when bed available
[2017-09-16] MEDS: OXYCODONE-ACETAMINOPHEN 5-325 MG TABLET PO PRN (19:24)
[2017-09-17] MEDS: ACETAMINOPHEN 325 MG TABLET PO PRN ×2 (03:42→14:51)
[2017-09-17 06:47] LABS: ANION GAP 8 (5-19); BLOOD UREA NITROGEN 32 mg/dL (7-20); CALCIUM 9.5 mg/dL (8.4-10.2); CARBON DIOXIDE 27 mmol/L (22-30); CHLORIDE 107 mmol/L (98-107); GLUCOSE 96 mg/dL (75-110); SODIUM 141.9 mmol/L (137-145)
[2017-09-17] MEDS: HYDROMORPHONE HCL INJ/PF 2 MG/ML AMPULE IV PRN ×2 (08:46→21:49)
[2017-09-17] MEDS: CALCIUM CARBONATE 250 MG/VITAMIN D3 125 UNIT TABLET PO SCH ×2 (09:06→17:42)
--- NOTE | 2017-09-17 15:25 | PDOC PROGRESS REPORT ---
Subjective Progress Note for:: 09/17/17 - Seen on rounds this morning Subjective:: Patient states that she has no complaints but does have some knee pain. She states that her knee pain is not bad when she sitting still. Otherwise she is has knee immobilizer which does help. Denies any chest pain, shortness of breath or abdominal pain. Reason For Visit: POSSIBLE VICTORINO, BILATERAL TIBIAL FRACTURES Physical Exam Vital Signs: Temp Pulse Resp BP Pulse Ox 98.1 F 74 16 131/56 H 97 09/17/17 12:00 09/17/17 12:00 09/17/17 12:00 09/17/17 12:00 09/17/17 12:00 Intake & Output 09/16/17 09/17/17 09/18/17 06:59 06:59 06:59 Intake Total 500 1336 Output Total 300 900 Balance 200 436 Weight 143 lb 4.807 oz General appearance: PRESENT: no acute distress Head exam: PRESENT: atraumatic, normocephalic Eye exam: PRESENT: EOMI, other - Normal sclera Mouth exam: PRESENT: moist Respiratory exam: PRESENT: clear to auscultation almaz, symmetrical Cardiovascular exam: PRESENT: RRR, +S1, +S2 Pulses: PRESENT: +2 pedal pulses bilateral GI/Abdominal exam: PRESENT: normal bowel sounds, soft, other - Nontender Extremities exam: PRESENT: other - Bilateral knee immobilizers in place. She can wiggle her toes in both legs. Left leg is significantly shorter than her right leg congenitally Neurological exam: PRESENT: alert, awake, CN II-XII grossly intact Skin exam: PRESENT: dry, warm Results Laboratory Results: 09/16/17 05:14 09/17/17 05:48 09/17/17 05:48 Sodium 141.9 Potassium 4.0 Chloride 107 Carbon Dioxide 27 Anion Gap 8 BUN 32 H Creatinine 1.07 Est GFR ( Amer) > 60 Est GFR (Non-Af Amer) 51 L Glucose 96 Calcium 9.5 Impressions: Tibia/Fibula X-Ray 09/13/17 13:36 IMPRESSION: Fracture of the proximal tibia as reported on the knee films. No fracture of the mid and distal shafts of the tibia and fibula Chest X-Ray 09/13/17 17:08 IMPRESSION: NO ACUTE RADIOGRAPHIC FINDING IN THE CHEST. Femur X-Ray 09/13/17 17:08 IMPRESSION: 1. Fractures of the proximal tibia and fibula. 2. Old surgical changes as described. Knee X-Ray 09/13/17 17:08 IMPRESSION: Tibial and fibular fractures. Renal Ultrasound 09/16/17 00:00 IMPRESSION: Normal renal sonogram. Assessment & Plan - Diagnosis (1) Acute kidney failure Qualifiers: Acute renal failure type: unspecified Qualified Code(s): N17.9 - Acute kidney failure, unspecified Is this a current diagnosis for this admission?: Yes Plan: Creatinine is much improved today and most likely her AK I has resolved. Renal ultrasound was normal. Unclear etiology of her renal failure. (2) Bilateral tibial fractures Qualifiers: Encounter type: initial encounter Fracture type: closed Qualified Code(s) : S82.201A - Unspecified fracture of shaft of right tibia, initial encounter for closed fracture; S82.202A - Unspecified fracture of shaft of left tibia, initial encounter for closed fracture; S82.202A - Unspecified fracture of shaft of left tibia, initial encounter for closed fracture Is this a current diagnosis for this admission?: Yes Plan: Orthopedics has been consulted and right now conservative nonsurgical management is the plan. Unfortunately she is nonweightbearing and will require 6 weeks of rehab. Plan to send her to rehab when bed is available. (3) Congenital hip dysplasia Is this a current diagnosis for this admission?: Yes Plan: Left leg is shorter than the right. Otherwise stable. She does use 2 canes while she walks. (4) Fall Qualifiers: Encounter type: initial encounter Qualified Code(s): W19.XXXA - Unspecified fall, initial encounter Is this a current diagnosis for this admission?: Yes - Plan Summary Plan Summary: Discharge to rehab when bed is available.
[2017-09-18] MEDS: HYDROMORPHONE HCL INJ/PF 2 MG/ML AMPULE IV PRN (05:55)
[2017-09-18] MEDS: OXYCODONE-ACETAMINOPHEN 5-325 MG TABLET PO PRN ×3 (10:33→22:25)
[2017-09-18] MEDS: CALCIUM CARBONATE 250 MG/VITAMIN D3 125 UNIT TABLET PO SCH ×2 (10:34→17:04)
--- NOTE | 2017-09-18 16:51 | PDOC PROGRESS REPORT ---
Subjective Progress Note for:: 09/18/17 - seen on rounds this afternoon Subjective:: she has no acute complaints this morning. states her knees hurt if she tries moving them but otherwise her pain is the same. 4/10 pain scale now. Reason For Visit: POSSIBLE VICTORINO, BILATERAL TIBIAL FRACTURES Physical Exam Vital Signs: Temp Pulse Resp BP Pulse Ox 98.3 F 76 15 111/57 L 97 09/17/17 23:28 09/17/17 23:28 09/17/17 23:28 09/17/17 23:28 09/17/17 23:28 Intake & Output 09/17/17 09/18/17 09/19/17 06:59 06:59 06:59 Intake Total 1336 940 Output Total 900 1100 Balance 436 -160 Weight 143 lb 4.807 oz 143 lb 4.807 oz General appearance: PRESENT: no acute distress, thin Head exam: PRESENT: atraumatic, normocephalic Eye exam: PRESENT: EOMI. ABSENT: scleral icterus Mouth exam: PRESENT: moist, neck supple Neck exam: ABSENT: tenderness, tracheal deviation Respiratory exam: PRESENT: clear to auscultation almaz, symmetrical Cardiovascular exam: PRESENT: +S1, +S2 Pulses: PRESENT: +2 pedal pulses bilateral GI/Abdominal exam: PRESENT: normal bowel sounds, soft. ABSENT: tenderness Musculoskeletal exam: PRESENT: tenderness - bilateral Knee TTP - she has knee immobilizer both legs, left leg is shorter than right- chronic Neurological exam: PRESENT: alert, awake, CN II-XII grossly intact Psychiatric exam: PRESENT: normal mood Skin exam: PRESENT: dry, warm Results Laboratory Results: 09/16/17 05:14 09/17/17 05:48 Impressions: Tibia/Fibula X-Ray 09/13/17 13:36 IMPRESSION: Fracture of the proximal tibia as reported on the knee films. No fracture of the mid and distal shafts of the tibia and fibula Chest X-Ray 09/13/17 17:08 IMPRESSION: NO ACUTE RADIOGRAPHIC FINDING IN THE CHEST. Femur X-Ray 09/13/17 17:08 IMPRESSION: 1. Fractures of the proximal tibia and fibula. 2. Old surgical changes as described. Knee X-Ray 09/13/17 17:08 IMPRESSION: Tibial and fibular fractures. Renal Ultrasound 09/16/17 00:00 IMPRESSION: Normal renal sonogram. Assessment & Plan - Diagnosis (1) Bilateral tibial fractures Qualifiers: Encounter type: initial encounter Fracture type: closed Qualified Code(s) : S82.201A - Unspecified fracture of shaft of right tibia, initial encounter for closed fracture; S82.202A - Unspecified fracture of shaft of left tibia, initial encounter for closed fracture; S82.202A - Unspecified fracture of shaft of left tibia, initial encounter for closed fracture Is this a current diagnosis for this admission?: Yes Plan: Orthopedics has been consulted and right now conservative nonsurgical management is the plan. Unfortunately she is nonweightbearing and will require 6 weeks of rehab. Unfortunately as per Cm note she doesn't meet criteria for inpatient rehab- likely home with home health- she has knee immobilizers on now (2) Acute kidney failure Qualifiers: Acute renal failure type: unspecified Qualified Code(s): N17.9 - Acute kidney failure, unspecified Is this a current diagnosis for this admission?: Yes Plan: AK I has resolved. Renal ultrasound was normal. (3) Congenital hip dysplasia Is this a current diagnosis for this admission?: Yes Plan: Left leg is shorter than the right. Otherwise stable. She does use 2 canes while she walks. (4) Fall Qualifiers: Encounter type: initial encounter Qualified Code(s): W19.XXXA - Unspecified fall, initial encounter Is this a current diagnosis for this admission?: Yes Plan: fall precautions - Plan Summary Plan Summary: possible d/c tomorrow to home with home health since she doesn't meet criteria for rehab inpatient
[2017-09-19] MEDS: OXYCODONE-ACETAMINOPHEN 5-325 MG TABLET PO PRN ×3 (06:39→14:40)
[2017-09-19 09:09] LABS: HEMATOCRIT 28.3 % (36.0-47.0); HEMOGLOBIN 9.9 g/dL (12.0-15.5); MEAN CORPUSCULAR HEMOGLOBIN 30.9 pg (27.0-33.4); MEAN CORPUSCULAR HGB CONC 34.9 g/dL (32.0-36.0); MEAN CORPUSCULAR VOLUME 89 fl (80-97); PLATELET COUNT 365 10^3/uL (150-450); RED CELL DISTRIBUTION WIDTH 14.3 % (11.5-14.0); WHITE BLOOD COUNT 6.7 10^3/uL (4.0-10.5)
[2017-09-19] MEDS: CALCIUM CARBONATE 250 MG/VITAMIN D3 125 UNIT TABLET PO SCH ×2 (10:37→18:13)
--- NOTE | 2017-09-19 15:57 | PDOC PROGRESS REPORT ---
Subjective Progress Note for:: 09/19/17 - Seen on rounds this afternoon Subjective:: She has no acute complaints this afternoon but continues to have some knee pain when she moves it. I discussed with nursing about undoing her knee immobilizers 2-3 times a day to give her a break. Reason For Visit: POSSIBLE VICTORINO, BILATERAL TIBIAL FRACTURES Physical Exam Vital Signs: Temp Pulse Resp BP Pulse Ox 98.8 F 81 16 115/54 L 97 09/18/17 23:37 09/18/17 23:37 09/18/17 23:37 09/18/17 23:37 09/18/17 23:37 Intake & Output 09/18/17 09/19/17 09/20/17 06:59 06:59 06:59 Intake Total 940 666 Output Total 1100 300 Balance -160 366 Weight 143 lb 4.807 oz General appearance: PRESENT: no acute distress, thin Head exam: PRESENT: atraumatic, normocephalic Eye exam: PRESENT: EOMI. ABSENT: scleral icterus Mouth exam: PRESENT: moist, neck supple Neck exam: ABSENT: tenderness, tracheal deviation Cardiovascular exam: PRESENT: +S1, +S2 Pulses: PRESENT: +2 pedal pulses bilateral Extremities exam: PRESENT: tenderness - Bilateral knee tenderness to palpation, other - Left leg shorter than right congenitally. ABSENT: +2 edema Musculoskeletal exam: PRESENT: full ROM - Decreased range of motion due to fracture, tenderness - See above Neurological exam: PRESENT: alert, awake, oriented to person, oriented to place , oriented to time, CN II-XII grossly intact Skin exam: PRESENT: dry, warm Results Laboratory Results: 09/19/17 08:52 09/17/17 05:48 09/19/17 08:52 WBC 6.7 RBC 3.20 L Hgb 9.9 L Hct 28.3 L MCV 89 MCH 30.9 MCHC 34.9 RDW 14.3 H Plt Count 365 Impressions: Tibia/Fibula X-Ray 09/13/17 13:36 IMPRESSION: Fracture of the proximal tibia as reported on the knee films. No fracture of the mid and distal shafts of the tibia and fibula Chest X-Ray 09/13/17 17:08 IMPRESSION: NO ACUTE RADIOGRAPHIC FINDING IN THE CHEST. Femur X-Ray 09/13/17 17:08 IMPRESSION: 1. Fractures of the proximal tibia and fibula. 2. Old surgical changes as described. Knee X-Ray 09/13/17 17:08 IMPRESSION: Tibial and fibular fractures. Renal Ultrasound 09/16/17 00:00 IMPRESSION: Normal renal sonogram. Assessment & Plan - Diagnosis (1) Bilateral tibial fractures Qualifiers: Encounter type: initial encounter Fracture type: closed Qualified Code(s) : S82.201A - Unspecified fracture of shaft of right tibia, initial encounter for closed fracture; S82.202A - Unspecified fracture of shaft of left tibia, initial encounter for closed fracture; S82.202A - Unspecified fracture of shaft of left tibia, initial encounter for closed fracture Is this a current diagnosis for this admission?: Yes (2) Acute kidney failure Qualifiers: Acute renal failure type: unspecified Qualified Code(s): N17.9 - Acute kidney failure, unspecified Is this a current diagnosis for this admission?: Yes (3) Congenital hip dysplasia Is this a current diagnosis for this admission?: Yes (4) Fall Qualifiers: Encounter type: initial encounter Qualified Code(s): W19.XXXA - Unspecified fall, initial encounter Is this a current diagnosis for this admission?: Yes - Plan Summary Plan Summary: Plan was to discharge patient to rehab today. Unfortunately patient is refusing to go to rehab today and request another day of stay. I spoke with case management and we will send her to rehab tomorrow morning. She continues to have some knee pain due to a fracture and we will continue with her pain meds at this time.
[2017-09-19] MEDS: ACETAMINOPHEN 325 MG TABLET PO PRN (18:13)
[2017-09-20] MEDS: OXYCODONE-ACETAMINOPHEN 5-325 MG TABLET PO PRN ×3 (00:11→14:52)
[2017-09-20] MEDS: HYDROMORPHONE HCL INJ/PF 2 MG/ML AMPULE IV PRN ×2 (07:39→11:51)
[2017-09-20] MEDS: CALCIUM CARBONATE 250 MG/VITAMIN D3 125 UNIT TABLET PO SCH (10:16)
--- NOTE | 2017-09-20 11:03 | PDOC DISCHARGE SUMMARY ---
General - Admit/Disc Date/PCP Admission Date/Primary Care Provider: 09/15/17 20:43 Consulting orthopedist: Ruperto Benavides MD Discharge Date: 09/20/17 - Discharge Diagnosis (1) Bilateral tibial fractures Is this a current diagnosis for this admission?: Yes (2) Acute kidney failure Is this a current diagnosis for this admission?: Yes Summary: Resolved. 09/13/17 09/17/17 18:18 05:48 Creatinine 2.23 H 1.07 (3) Congenital hip dysplasia Is this a current diagnosis for this admission?: Yes (4) Fall Is this a current diagnosis for this admission?: Yes - Additional Information Resuscitation Status: Full Code Discharge Diet: As Tolerated, Regular Discharge Activity: Other Prescriptions: Acetaminophen [Tylenol 325 mg Tablet] 650 mg PO Q4HP PRN #10 tablet PRN Reason: Calcium Carbonate/Vitamin D3 [Os-Dar 250 mg with Vitamin D 125 Units] 1 tab PO BID #30 tablet Oxycodone HCl/Acetaminophen [Percocet 5-325 mg Tablet] 1 tab PO Q4HP PRN #20 tablet PRN Reason: Home Medications: Acetaminophen [Tylenol 325 mg Tablet] 650 mg PO Q4HP PRN #10 tablet 09/20/17 Calcium Carbonate/Vitamin D3 [Os-Dar 250 mg with Vitamin D 125 Units] 1 tab PO BID #30 tablet 09/20/17 Oxycodone HCl/Acetaminophen [Percocet 5-325 mg Tablet] 1 tab PO Q4HP PRN #20 tablet 09/20/17 History of Present Illness Patient complains of: Fall History of Present Illness: LOREN DIEHL is a 66 year old female with past history of congenital hip dysplasia, with hx of left hip replacement x3, and right hip replacement x1. Patient denies taking medicine on a regular basis for any condition other than regular strength Ibuprofen occassionally for lower extremity pain. States that she was walking in her rented home and tripped on protective plastic that was on the floor. Due to her congenital hip condition, she uses bilateral canes in her ambulation. Patient does not have a PCP in the area due to moving from [place] in the last 6 months. She moved here to be closer to her daughter who lives in the area. Orthopedics saw her in the ED and recommend bilateral knee immobilizers and no surgery. Patient will be admitted under observation status overnight. Hospital Course Hospital Course: The patient was admitted to medical-surgical service. The patient was followed by Orthopedic consultation and physical therapy. SNF has been recommended. The patient is not happy with this arrangement stating that rehab was useless and that she was being forced out of the hospital. The patient was provided the option to go home however she lives alone. The patient was also noted to have an VICTORINO which resolved with 2 liters of IV fluids. The patient's pain has been well controlled. Currently patient's radiographs demonstrate acceptable alignment for conservative treatment of patient's bilateral proximal tibia fractures. Given this alignment will treat the patient conservatively but she will require rehabilitation and maintaining nonweightbearing for 6 weeks. Case discussed with the patient's daughter who agrees she would benefit from [facility] facility. Given the patient's age, fractures and difficulty with ambulation secondary to her congenital dysplasia, ortho recommended [facility] facility placement may be required or 24 7 home nursing. Patient was placed in bilateral knee immobilizers. Patient will have repeat radiographs at follow-up appointment. She will maintain nonweightbearing for at least 6 weeks. She may remove the knee immobilizers randomly throughout the day to avoid skin breakdown as per Orthopedics. Physical Exam Vital Signs: Temp Pulse Resp BP Pulse Ox 98.4 F 79 18 117/65 97 09/20/17 07:35 09/20/17 07:35 09/20/17 07:35 09/20/17 07:35 09/20/17 07:35 Intake & Output 09/18/17 09/19/17 09/20/17 23:59 23:59 23:59 Intake Total 300 1528 400 Output Total 800 575 50 Balance -500 953 350 Weight 65 kg 65 kg General appearance: PRESENT: no acute distress, well-developed, well-nourished Head exam: PRESENT: atraumatic Neck exam: ABSENT: JVD, tracheostomy Respiratory exam: PRESENT: symmetrical, unlabored. ABSENT: accessory muscle use Vascular exam: ABSENT: pallor GI/Abdominal exam: ABSENT: distended Rectal exam: PRESENT: deferred Extremities exam: PRESENT: other - Immobilizers in place Neurological exam: PRESENT: alert, awake, oriented to person, oriented to place , oriented to time, oriented to situation Psychiatric exam: PRESENT: agitated, unusual affect Skin exam: ABSENT: cyanosis Results Laboratory Results: 09/19/17 08:52 09/17/17 05:48 Labs- Last Values WBC 6.7 10^3/uL (4.0-10.5) 09/19/17 08:52 RBC 3.20 10^6/uL (3.72-5.28) L 09/19/17 08:52 Hgb 9.9 g/dL (12.0-15.5) L 09/19/17 08:52 Hct 28.3 % (36.0-47.0) L 09/19/17 08:52 MCV 89 fl (80-97) 09/19/17 08:52 MCH 30.9 pg (27.0-33.4) 09/19/17 08:52 MCHC 34.9 g/dL (32.0-36.0) 09/19/17 08:52 RDW 14.3 % (11.5-14.0) H 09/19/17 08:52 Plt Count 365 10^3/uL (150-450) 09/19/17 08:52 Seg Neutrophils % 59.9 % (42-78) 09/16/17 05:14 Lymphocytes % 21.6 % (13-45) 09/16/17 05:14 Monocytes % 11.2 % (3-13) 09/16/17 05:14 Eosinophils % 6.0 % (0-6) 09/16/17 05:14 Basophils % 1.3 % (0-2) 09/16/17 05:14 Absolute Neutrophils 3.6 10^3/uL (1.7-8.2) 09/16/17 05:14 Absolute Lymphocytes 1.3 10^3/uL (0.5-4.7) 09/16/17 05:14 Absolute Monocytes 0.7 10^3/uL (0.1-1.4) 09/16/17 05:14 Absolute Eosinophils 0.4 10^3/uL (0.0-0.6) 09/16/17 05:14 Absolute Basophils 0.1 10^3/uL (0.0-0.2) 09/16/17 05:14 Sodium 141.9 mmol/L (137-145) 09/17/17 05:48 Potassium 4.0 mmol/L (3.6-5.0) 09/17/17 05:48 Chloride 107 mmol/L (98-107) 09/17/17 05:48 Carbon Dioxide 27 mmol/L (22-30) 09/17/17 05:48 Anion Gap 8 (5-19) 09/17/17 05:48 BUN 32 mg/dL (7-20) H 09/17/17 05:48 Creatinine 1.07 mg/dL (0.52-1.25) 09/17/17 05:48 Est GFR ( Amer) > 60 (>60) 09/17/17 05:48 Est GFR (Non-Af Amer) 51 (>60) L 09/17/17 05:48 Glucose 96 mg/dL (75-110) 09/17/17 05:48 Calcium 9.5 mg/dL (8.4-10.2) 09/17/17 05:48 Phosphorus 5.7 mg/dL (2.5-4.5) H 09/13/17 18:18 Magnesium 1.9 mg/dL (1.6-2.3) 09/13/17 18:18 Creatine Kinase 58 U/L (30-135) 09/13/17 18:18 Albumin 3.8 g/dL (3.5-5.0) 09/13/17 18:18 Urine Creatinine 91.3 mg/dL (15-278) 09/16/17 01:30 Urine Sodium < 5 mmol/L (30-90) L 09/16/17 01:30 Urine Total Protein 18.3 mg/dL (<12) H 09/16/17 01:30 Impressions: Tibia/Fibula X-Ray 09/13/17 13:36 IMPRESSION: Fracture of the proximal tibia as reported on the knee films. No fracture of the mid and distal shafts of the tibia and fibula Chest X-Ray 09/13/17 17:08 IMPRESSION: NO ACUTE RADIOGRAPHIC FINDING IN THE CHEST. Femur X-Ray 09/13/17 17:08 IMPRESSION: 1. Fractures of the proximal tibia and fibula. 2. Old surgical changes as described. Knee X-Ray 09/13/17 17:08 IMPRESSION: Tibial and fibular fractures. Renal Ultrasound 09/16/17 00:00 IMPRESSION: Normal renal sonogram. Qualifiers - * PATIENT BEING DISCHARGED WITH ANY OF THE FOLLOWING DIAGNOSIS: No Plan Discharge Plan: Follow-up with Orthopedics in 2-4 weeks for hospital follow-up. Time Spent: Greater than 30 Minutes
[2017-09-20 12:19] VITALS: BP 116/60
== END 2017-09-20 15:10 | DRG 563 ==
LOC: ER 12:27 → EH 17:29 → INTOOBSV 17:29 → 4S 19:15 → OBSVTOIN 09-15 20:43
PROVIDERS: ADMIT Internal Medicine; ATTEND Internal Medicine
DX: S82.101A Unspecified fracture of upper end of right tibia, initial encounter for closed fracture (principal); S82.102A Unspecified fracture of upper end of left tibia, initial encounter for closed fracture; N17.9 Acute kidney failure, unspecified; N18.4 Chronic kidney disease, stage 4 (severe); W19.XXXA Unspecified fall, initial encounter; Q65.89 Other specified congenital deformities of hip; Z96.643 Presence of artificial hip joint, bilateral; I12.9 Hypertensive chronic kidney disease with stage 1 through stage 4 chronic kidney disease, or unspecified chronic kidney disease; M19.90 Unspecified osteoarthritis, unspecified site; Z60.2 Problems related to living alone; Z79.899 Other long term (current) drug therapy; Z87.891 Personal history of nicotine dependence; Z88.0 Allergy status to penicillin; Z83.3 Family history of diabetes mellitus
CPT/HCPCS: 36415; 71045; 76775; 80048; 80069; 82550; 82570; 83735; 84156; 84300; 85025; 85027; 93005; 93010; 99285; G0378; G8978-GP; G8979-GP; G8987-GO; G8988-GO; J1170; J7030; L1830